=== PATIENT | female | born 2000 | race African-American/Black ===

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

== ENCOUNTER 2021-04-29 16:23 | Observation (INO) | payer MEDICAID ==
[~2021-04-29] VITALS: Ht 152.4 cm; Wt 63.0 kg
[2021-04-29 16:32] VITALS: BP 114/80
[2021-04-29 17:38] LABS: EOSINOPHILS % 1.3 % (0.0-5.0); HEMATOCRIT. 36.8 % (36.0-48.0); HEMOGLOBIN. 12.6 g/dL (12.0-16.0); LYMPHOCYTES % 35.7 % (20.0-50.0); MEAN CORPUSCULAR HEMOGLOBIN 31.2 pg (28.0-32.0); MEAN CORPUSCULAR VOLUME 91.3 fL (81.0-99.0); MEAN PLATELET VOLUME 7.6 fl (7.4-10.4); PLATELET 279 x1000/uL (130-400); RED BLOOD CELL COUNT 4.03 mill/uL (4.2-5.4); RED CELL DISTRIBUTION WIDTH 13.5 % (11.6-14.6)
[2021-04-29 17:44] LABS: CHLORIDE 110 mEq/L (98-107)
[2021-04-29 17:47] LABS: INR 1.3; PROTHROMBIN TIME 13.8 sec (9.6-11.0)
== END 2021-04-29 19:45 | disposition home or self-care (01) ==
LOC: ER 16:23 → L&D 17:43 → 8 EST A/PP 17:54 → UNDODISOB 19:45
PROVIDERS: ADMIT Obstetrics & Gynecology; ATTEND Obstetrics & Gynecology
DX: O9A.212 Injury, poisoning and certain other consequences of external causes complicating pregnancy, second trimester (principal); O46.92 Antepartum hemorrhage, unspecified, second trimester; O26.892 Other specified pregnancy related conditions, second trimester; R10.30 Lower abdominal pain, unspecified; Z3A.20 20 weeks gestation of pregnancy; W10.9XXA Fall (on) (from) unspecified stairs and steps, initial encounter; Y93.01 Activity, walking, marching and hiking; Y92.89 Other specified places as the place of occurrence of the external cause; Y99.8 Other external cause status
CPT/HCPCS: 36415; 59025; 76830; 76856; 80053; 85025; 85610; 85730; 86850; 86900; 86901; G0378; 99281; 99284; G0379